=== PATIENT | female | born 2000 | race Caucasian/White ===

== ENCOUNTER 2018-06-13 16:27 | Emergency (ER) | payer BC ==
[2018-06-13 19:32] LABS: Hematocrit 40 % (35-47); Hemoglobin 13.5 g/dl (12.0-16.0); Mean Corpuscular HGB Conc 34 g/dl (31-36); Mean Corpuscular Hemoglobin 29 pg (27-31); Mean Corpuscular Volume 86 fL (80-97); Mean Platelet Volume 8.6 fL (7.4-10.4); Platelet Count 199 10^3/ul (150-450); Red Blood Count 4.65 10^6/ul (4.00-5.40); Red Cell Distribution Width 14 % (10.5-15); White Blood Count 8.5 10^3/ul (3.5-10.8)
[2018-06-13 19:53] LABS: ALT 30 U/L (7-52); AST 32 U/L (13-39); Albumin 4.4 g/dL (3.2-5.2); Albumin/Globulin Ratio 1.8 (1-3); Alkaline Phosphatase 63 U/L (34-104); Anion Gap 5 mmol/L (2-11); BUN/Creatinine Ratio 20.3 (8-20); Blood Urea Nitrogen 15 mg/dL (6-24); C Reactive Protein < 1.00 mg/L (<8.01); CO2 Carbon Dioxide 27 mmol/L (22-32); Calcium 9.2 mg/dL (8.6-10.3); Chloride 105 mmol/L (101-111); EGFR African American 121.1 (>60); EGFR Non-African American 100.1 (>60); Globulin 2.4 g/dL (2-4); Glucose 96 mg/dL (70-100); HCG Pregnancy 0.71 mIU/mL; Potassium 4.2 mmol/L (3.5-5.0); Sodium 137 mmol/L (135-145); Total Protein 6.8 g/dL (6.4-8.9)
[2018-06-13 20:09] LABS: ABS Basophils 0.1 10^3/ul (0-0.2); ABS Eosinophils 2.2 10^3/ul (0-0.6); ABS Lymphocytes 2.2 10^3/ul (1.0-4.8); ABS Monocytes 0.5 10^3/ul (0-0.8); ABS Neutrophils 3.9 10^3/ul (1.5-7.7); ABS Nucleated RBC 0 10^3/ul; Lymphocyte % 25.2 %; Nucleated Red Blood Cells % 0
--- NOTE | 2018-06-13 21:38 | ED ---
Abdominal Pain/Female - HPI Summary HPI Summary: This patient is a 18 year old female presenting to [facility] accompanied by mother with a chief complaint of abd pain since 1 week ago. Patient states that the pain is located on her upper abd and feels bloated. Patient states that whenever she passes gas, it comes with a strong smell. The pain is intermittent and appears whenever she eats. The pain is rated 6/10 in severity. Symptoms aggravated by nothing. Symptoms alleviated by nothing. Patient additionally reports nausea, vomiting. Patient denies dysuria. - History of Current Complaint Chief Complaint: EDAbdPain Stated Complaint: ABD PAIN Time Seen by Provider: 06/13/18 21:25 Hx Obtained From: Patient Onset/Duration: Sudden Onset, Still Present Timing: Intermittent Episode Lasting Severity Initially: Moderate Severity Currently: None Pain Intensity: 6 Pain Scale Used: 0-10 Numeric Location: Epigastric Radiates: No Character: Cramping Aggravating Factor(s): Nothing Alleviating Factor(s): Nothing Associated Signs and Symptoms: Positive: Negative - dysuria, Other: - nausea, vomiting PMH/Surg Hx/FS Hx/Imm Hx Previously Healthy: Yes Opthamlomology History: Denies: Hx Legally Blind EENT History: Denies: Hx Deafness Infectious Disease History: No Infectious Disease History: Denies: Traveled Outside the [place] in Last 30 Days - Family History Known Family History: Negative: Hypertension - Social History Occupation: Student Lives: Dormitory/Roommates Alcohol Use: None Hx Substance Use: No Substance Use Type: Reports: None Hx Tobacco Use: No Smoking Status (MU): Never Smoked Tobacco Review of Systems Negative: Fever Positive: Abdominal Pain, Vomiting, Nausea Negative: dysuria All Other Systems Reviewed And Are Negative: Yes Physical Exam - Summary Physical Exam Summary: Appearance: Well-appearing, Well-nourished, lying in bed comfortably Skin: Warm, dry, no obvious rash Eyes: sclera anicteric, no conjunctival pallor ENT: mucous membranes moist, pharynx appears normal Neck: Supple, nontender Respiratory: Clear to auscultation, no signs of respiratory distress Cardiovascular: Normal S1, S2. No murmurs. Normal distal pulses in tibial and radial bilaterally. Abdomen: Soft, RUQ tenderness without peritoneal signs Musculoskeletal: Normal, Strength/ROM Intact Neurological: A&Ox3, awake and alert, mentation is normal, speech is fluent and appropriate Psychiatric: affect is normal, does not appear anxious or depressed Triage Information Reviewed: Yes Vital Signs On Initial Exam: Initial Vitals Temp Pulse Resp BP Pulse Ox 98.7 F 79 16 149/69 99 06/13/18 16:34 06/13/18 16:34 06/13/18 16:34 06/13/18 16:34 06/13/18 16:34 Vital Signs Reviewed: Yes Diagnostics - Vital Signs Vital Signs Temp Pulse Resp BP Pulse Ox 06/13/18 20:15 97.5 F 66 16 117/69 97 06/13/18 18:15 98.7 F 70 16 103/54 98 06/13/18 16:34 98.7 F 79 16 149/69 99 - Laboratory Lab Results: Lab Results 06/13/18 06/13/18 Range/Units 18:50 18:50 WBC 8.5 (3.5-10.8) 10^3/ul RBC 4.65 (4.00-5.40) 10^6/ul Hgb 13.5 (12.0-16.0) g/dl Hct 40 (35-47) % MCV 86 (80-97) fL MCH 29 (27-31) pg MCHC 34 (31-36) g/dl RDW 14 (10.5-15) % Plt Count 199 (150-450) 10^3/ul MPV 8.6 (7.4-10.4) fL Neut % (Auto) 43.7 % Lymph % (Auto) 25.2 % Mcclain % (Auto) 5.5 % Eos % (Auto) 25.0 % Baso % (Auto) 0.6 % Absolute Neuts (auto) 3.9 (1.5-7.7) 10^3/ul Absolute Lymphs (auto) 2.2 (1.0-4.8) 10^3/ul Absolute Monos (auto) 0.5 (0-0.8) 10^3/ul Absolute Eos (auto) 2.2 H (0-0.6) 10^3/ul Absolute Basos (auto) 0.1 (0-0.2) 10^3/ul Absolute Nucleated RBC 0 10^3/ul Nucleated RBC % 0 Sodium 137 (135-145) mmol/L Potassium 4.2 (3.5-5.0) mmol/L Chloride 105 (101-111) mmol/L Carbon Dioxide 27 (22-32) mmol/L Anion Gap 5 (2-11) mmol/L BUN 15 (6-24) mg/dL Creatinine 0.74 (0.51-0.95) mg/dL Est GFR ( Amer) 121.1 (>60) Est GFR (Non-Af Amer) 100.1 (>60) BUN/Creatinine Ratio 20.3 H (8-20) Glucose 96 (70-100) mg/dL Calcium 9.2 (8.6-10.3) mg/dL Total Bilirubin 0.30 (0.2-1.0) mg/dL AST 32 (13-39) U/L ALT 30 (7-52) U/L Alkaline Phosphatase 63 (34-104) U/L C-Reactive Protein < 1.00 (<8.01) mg/L Total Protein 6.8 (6.4-8.9) g/dL Albumin 4.4 (3.2-5.2) g/dL Globulin 2.4 (2-4) g/dL Albumin/Globulin Ratio 1.8 (1-3) Lipase 32 (11.0-82.0) U/L Beta HCG, Quant 0.71 mIU/mL Result Diagrams: 06/13/18 18:50 06/13/18 18:50 Lab Statement: Any lab studies that have been ordered have been reviewed, and results considered in the medical decision making process. - Ultrasound No standard instances Ultrasound Interpretation Completed By: Radiologist Summary of Ultrasound Findings: Gallbladder ultrasound impression: No sonographic findings to correlate with patient's symptomatology. ED physician has reviewed this imaging report. Abdominal Pain Fem Course/Dx - Course Course Of Treatment: This patient is a 18 year old female presenting to [facility] accompanied by mother with a chief complaint of abd pain since 1 week ago. Patient states that the pain is located on her upper abd and feels bloated. Patient states that whenever she passes gas, it comes with a strong smell. The pain is intermittent and appears whenever she eats. The pain is rated 6/10 in severity. Symptoms aggravated by nothing. Symptoms alleviated by nothing. Patient additionally reports nausea, vomiting. Patient denies dysuria. The physical exam reveals RUQ tenderness without peritoneal signs. Gallbladder ultrasound impression: No sonographic findings to correlate with patient's symptomatology. Lab results obtained showing trace urine ketones, trace Ur Leukocyte Esterase and Ur Squamous Epith Cells present. The patient will be discharged. She is agreeable with this plan. - Diagnoses Provider Diagnoses: Abdominal pain Discharge - Sign-Out/Discharge Documenting (check all that apply): Patient Departure - DC Patient Received Moderate/Deep Sedation with Procedure: No - Discharge Plan Condition: Good Disposition: HOME Prescriptions: Pantoprazole TAB * [Protonix TAB*] 40 mg PO DAILY #14 tab Patient Education Materials: Gastritis (ED), Acute Abdominal Pain (ED), Gas and Bloating (ED) Referrals: [facility] [Outside] Additional Instructions: I am suspicious that Wade could be suffering from a condition called acalculous cholecystitis, which happens when the gall bladder is not functioning properly. The test that would confirm that is called a CCK-HIDA scan and her doctor could order that test through our radiology department, or another hospital. There is a specific prep to that, so it needs to be scheduled in advance. In the meantime I have prescribed protonix, which is an acid lorraine medication used to treat ulcers, gastritis, non-ulcer dyspepsia and other related conditions, I think an empiric trial of this for a couple of weeks is reasonable while awaiting the other test. - Billing Disposition and Condition Condition: GOOD Disposition: Home - Attestation Statements Document Initiated by Juan: Yes Documenting Scribe: Thelma Javier Provider For Whom Juan is Documenting (Include Credential): Juanito Patino MD Scribe Attestation: IThelma, scribed for Juanito Patino MD on 06/14/18 at 2350. Scribe Documentation Reviewed: Yes Provider Attestation: The documentation as recorded by the Thelma christianson accurately reflects the service I personally performed and the decisions made by me, Juanito Patino MD Status of Juan Document: Viewed
[2018-06-13 21:57] LABS: Urine Appearance Cloudy; Urine Bacteria Absent (Absent); Urine Bilirubin Negative (Negative); Urine Blood Negative (Negative); Urine Color Yellow; Urine Glucose Negative (Negative); Urine Ketones Trace (Negative); Urine Nitrite Negative (Negative); Urine Protein Negative (Negative); Urine Red Blood Cell Trace(0-2/hpf) (Absent); Urine Specific Gravity 1.018 (1.010-1.030); Urine Squamous Epithelial Cell Present (Absent); Urine Urobilinogen Negative (Negative); Urine White Blood Cell Trace(0-5/hpf) (Absent)
[2018-06-14 00:42] VITALS: BP 112/60
== END 2018-06-14 00:42 | disposition home or self-care (01) ==
LOC: ED 16:27
DX: R10.9 Unspecified abdominal pain (principal); R11.2 Nausea with vomiting, unspecified
CPT/HCPCS: 36415; 76705; 80053; 81003; 81015; 83690; 84702; 85025; 86140; 87086; 99282